=== PATIENT | male | born 1955 | race Caucasian/White ===

== ENCOUNTER 2016-11-05 11:02 | Day surgery (SDC) | payer BC ==
[~2016-11-05] VITALS: Ht 176.5 cm; Wt 99.7 kg
[~2016-11-05 11:02] MED LIST: ELIQUIS5 MG PO; TOPROL XL25 MG PO
[2016-11-05 11:33] VITALS: BP 140/93
[2016-11-05 11:51] LABS: PROTHROMBIN TIME 10.9 SEC (10.2-12.9)
[2016-11-05 11:54] LABS: PTT 29.5 SEC (25-37)
[2016-11-05 15:45] VITALS: BP 126/994
[2016-11-05 16:26] VITALS: BP 127/79
== END 2016-11-05 16:40 | disposition home or self-care (01) ==
LOC: SDC 11:02
PROVIDERS: Orthopaedic Surgery Sports Medicine
PROC: 0SBC4ZZ Excision of Right Knee Joint, Percutaneous Endoscopic Approach (ICD-10-PCS; principal; 2016-11-05)
DX: S83.281A Other tear of lateral meniscus, current injury, right knee, initial encounter (principal); M94.269 Chondromalacia, unspecified knee; I48.91 Unspecified atrial fibrillation; Z87.81 Personal history of (healed) traumatic fracture
CPT/HCPCS: 85610; 85730; J0131; J0171; J1100; J2250; J2405; J3010